=== PATIENT | female | born 1965 | race Caucasian/White ===

== ENCOUNTER → 2017-02-15 | Outpatient (CLI) | payer OTHER ==
[~2017-02-15] MED LIST: AMBIEN 10MG10 MG PO; FERROUS SU325 MG/TAB PO; FOLIC ACID 40400 MCG PO; LORTAB PO; MOBIC15 MG PO; MULTI VITAMINS1 TAB PO; NORCO 325 MG-7.1 TAB PO; SOME BP MED; ULTRAM 50MG TAB50 MG PO; VITAMIN C500 MG PO; VITAMIN D 1001000 IU PO; XARELTO STARTER20 MG PO; XARELTO10 MG PO; XARELTO20 MG PO; ZOVIRAX 200MG200 MG PO
== END ==
LOC: COL.RAD 10:14
DX: M17.11 Unilateral primary osteoarthritis, right knee (principal); M25.562 Pain in left knee; M25.561 Pain in right knee

== ENCOUNTER 2017-02-22 12:23 | Inpatient (IN) | payer OTHER ==
[~2017-02-22] VITALS: Ht 157.5 cm; Wt 86.0 kg
[~2017-02-22 12:23] MED LIST changes: -AMBIEN 10MG10 MG PO; -FERROUS SU325 MG/TAB PO; -FOLIC ACID 40400 MCG PO; -MULTI VITAMINS1 TAB PO; -NORCO 325 MG-7.1 TAB PO; -ULTRAM 50MG TAB50 MG PO; -VITAMIN C500 MG PO; -XARELTO STARTER20 MG PO; -XARELTO10 MG PO; -XARELTO20 MG PO; -ZOVIRAX 200MG200 MG PO
[2017-03-26] MEDS ORDERED: ZOVIRAX 200MG200 MG PO (14:03)
[2017-03-26] MEDS ORDERED: AMBIEN 10MG10 MG PO (14:04)
[2017-03-29] VITALS (13 sets, daily range): BP systolic 94–123; BP diastolic 36–80; PULSE 48–85; TEMP 97.8–98.3
[2017-03-29] MEDS ORDERED: VITAMIN C500 MG PO (05:40)
[2017-03-29] MEDS ORDERED: FOLIC ACID 40400 MCG PO (05:40)
[2017-03-29] MEDS ORDERED: FERROUS SU325 MG/TAB PO (05:40)
[2017-03-29] MEDS ORDERED: MULTI VITAMINS1 TAB PO (05:41)
[2017-03-30] VITALS (7 sets, daily range): BP systolic 98–118; BP diastolic 57–71; PULSE 66–76; TEMP 97.2–98.8
[2017-03-30 07:02] LABS: HEMATOCRIT 32.3 % (37.0-47.0); HEMOGLOBIN 10.9 g/dl (12.5-16.0)
[2017-03-31 00:05] VITALS: BP 104/62; PULSE 68; TEMP 98.4
[2017-03-31 04:00] VITALS: BP 98/70; PULSE 81; TEMP 97.9
[2017-03-31 06:41] LABS: HEMATOCRIT 28.7 % (37.0-47.0); HEMOGLOBIN 9.8 g/dl (12.5-16.0)
[2017-03-31 07:09] VITALS: BP 100/54; PULSE 89; TEMP 98.7
[2017-03-31] MEDS ORDERED: XARELTO10 MG PO (07:09)
[2017-03-31] MEDS ORDERED: NORCO 325 MG-7.1 TAB PO (07:10)
[2017-03-31] MEDS ORDERED: ULTRAM 50MG TAB50 MG PO (07:10)
[2017-03-31 11:20] VITALS: BP 112/65; PULSE 85
[2017-03-31 16:03] VITALS: BP 92/59; PULSE 88; TEMP 98.2
[2017-03-31 19:48] VITALS: BP 124/73; PULSE 82; TEMP 98.2
[2017-04-01 01:45] VITALS: BP 121/66; PULSE 93; TEMP 97.5
[2017-04-01 04:00] VITALS: BP 106/53; PULSE 67; TEMP 98.2
[2017-04-01 07:46] VITALS: BP 126/66; PULSE 85; TEMP 98.6
[2017-04-01 11:52] VITALS: BP 114/67; PULSE 99; TEMP 98.3
== END 2017-04-01 14:11 | disposition home or self-care (01) | DRG 462 ==
LOC: JCC 03-29 05:23
PROVIDERS: Orthopaedic Surgery; Physician Assistant
PROC: 0SRC0J9 Replacement of Right Knee Joint with Synthetic Substitute, Cemented, Open Approach (ICD-10-PCS; 2017-03-29)
PROC: 0SRD0J9 Replacement of Left Knee Joint with Synthetic Substitute, Cemented, Open Approach (ICD-10-PCS; principal; 2017-03-29 07:30)
DX: M17.0 Bilateral primary osteoarthritis of knee (principal)
CPT/HCPCS: A4315; A9284; C1713; C1776; J0690; J1100; J1885; J2250; J2270; J2405; J2704; J7120

== ENCOUNTER → 2017-03-15 | Outpatient (CLI) | payer OTHER ==
[~2017-03-15] MED LIST changes: +AMBIEN 10MG10 MG PO; +FERROUS SU325 MG/TAB PO; +FOLIC ACID 40400 MCG PO; +MULTI VITAMINS1 TAB PO; +NORCO 325 MG-7.1 TAB PO; +ULTRAM 50MG TAB50 MG PO; +VITAMIN C500 MG PO; +XARELTO STARTER20 MG PO; +XARELTO10 MG PO; +XARELTO20 MG PO; +ZOVIRAX 200MG200 MG PO
== END ==
LOC: COL.LAB 08:32
DX: Z01.818 Encounter for other preprocedural examination (principal); M17.0 Bilateral primary osteoarthritis of knee

== ENCOUNTER 2017-04-10 02:18 | Inpatient (IN) | payer OTHER ==
[~2017-04-10] VITALS: Ht 160 cm; Wt 88.5 kg
[~2017-04-10 02:18] MED LIST changes: -XARELTO STARTER20 MG PO; -XARELTO20 MG PO
[2017-04-10 02:52] VITALS: BP 139/76; PULSE 68; TEMP 98.7
[2017-04-10 07:38] VITALS: BP 106/48; PULSE 95; TEMP 98.3
[2017-04-10 10:51] LABS: INR 1.2 (0.8-3.0); PROTHROMBIN TIME 13.8 SECONDS (9.7-12.8)
[2017-04-10 10:52] LABS: BASO % 0.2 % (0.0-2.0); EOS # 0.1 (0.0-0.7); GRAN # 6.9 (1.4-6.5); GRAN % 79.2 % (42.2-75.2); LYMPH # 1.1 (1.2-3.4); LYMPH % 12.6 % (20.0-51.0); MEAN CELL VOLUME 86 fl (80.0-100.0); MEAN CORPUSCULAR HGB CONC 33 g/dl (33.0-37.0); MEAN PLATELET VOLUME 11.2 fl (7.4-10.4); MONO # 0.6 (0.1-0.6); MONO % 6.3 % (1.7-9.3); PLATELET COUNT 76 K/mm3 (130-400); REDCELL DISTRIBUTION WIDTH-CV 14.5 % (11.5-14.5); WHITE BLOOD COUNT 8.8 K/mm3 (4.8-10.8)
[2017-04-10 10:55] LABS: HEMATOCRIT 28.4 % (37.0-47.0); HEMOGLOBIN 9.4 g/dl (12.5-16.0); MEAN CORPUSCULAR HEMOGLOBIN 28 pg (27.0-31.0)
[2017-04-10 10:59] LABS: ADJUSTED CALCIUM 9.1 mg/dL (8.4-10.2); ALBUMIN 3.3 gm/dL (3.5-5.0); BILIRUBIN,TOTAL 1.2 mg/dL (0.0-1.0); CALCIUM 8.5 mg/dL (8.4-10.2); CREATININE, serum 0.57 mg/dL (0.52-1.25); POTASSIUM 3.4 mmol/L (3.4-5.0); TOTAL PROTEIN 6.1 gm/dL (6.4-8.2)
[2017-04-10 11:29] VITALS: BP 129/64; PULSE 76; TEMP 98.1
[2017-04-10 15:26] VITALS: BP 134/77; PULSE 73; TEMP 98.5
[2017-04-10 20:31] VITALS: BP 135/73; PULSE 71; TEMP 98.1
[2017-04-11 01:45] VITALS: BP 125/62; PULSE 85; TEMP 100.4
[2017-04-11 06:00] VITALS: BP 135/75; PULSE 84; TEMP 100.7
[2017-04-11 08:11] LABS: INR 1.9 (0.8-3.0); PROTHROMBIN TIME 21.4 SECONDS (9.7-12.8)
[2017-04-11 08:20] VITALS: BP 137/70; PULSE 81; TEMP 99.2
[2017-04-11] MEDS ORDERED: XARELTO STARTER20 MG PO (10:10)
[2017-04-11] MEDS ORDERED: XARELTO20 MG PO (10:10)
== END 2017-04-11 11:05 | disposition home or self-care (01) | DRG 176 ==
LOC: MEDICAL 02:18
PROVIDERS: Internal Medicine
DX: I26.99 Other pulmonary embolism without acute cor pulmonale (principal); D50.9 Iron deficiency anemia, unspecified; Z96.653 Presence of artificial knee joint, bilateral; R07.89 Other chest pain
CPT/HCPCS: 99223-AI; 99239; J1650; J2270; J2405; J7030

== ENCOUNTER → 2017-06-14 | Outpatient (CLI) | payer OTHER ==
[~2017-06-14] MED LIST changes: +XARELTO STARTER20 MG PO; +XARELTO20 MG PO
== END ==
LOC: COL.VAS 10:18
DX: I36.1 Nonrheumatic tricuspid (valve) insufficiency (principal)